=== PATIENT | female | born 1985 | race Caucasian/White ===

== ENCOUNTER 2020-04-06 21:59 | Emergency (ER) | payer OTHER ==
[~2020-04-06] VITALS: Ht 160 cm; Wt 97.7 kg
[~2020-04-06 21:59] MED LIST: CYCL10TA2 PO; LORA10TA68 PO; NAPR250T6 PO; RANI-369 PO
[2020-04-06 22:15] VITALS: BP 117/69
[2020-04-06] MEDS ORDERED: LIDOCAINE 1% PF 2 ML VIAL. ONE ×3 (22:33→23:00)
--- NOTE | 2020-04-06 23:45 | PHYS DOC ---
Past Medical History Past Medical History: Anxiety, Asthma, Other Additional Past Medical Histor: SEASONAL ALLERGIES Past Surgical History: Cholecystectomy, Tonsillectomy Additional Past Surgical Histo: RIGHT ANKLE Smoking Status: Current Every Day Smoker Additional Information: 09/21 PPD Alcohol Use: None Drug Use: None General Adult EDM: Chief Complaint: SORE THROAT HPI: HPI: Patient is a 35 year old female presenting with sore throat onset 2 days ago no fever lymph nodes feel swollen feels similar when she has had strep throat in the past which she used to get a lot when she was younger no fever no cough Heart Score: Risk Factors: Risk Factors: DM, Current or recent (<one month) smoker, HTN, HLP, family hist ory of CAD, obesity. Risk Scores: Score 0 - 3: 2.5% MACE over next 6 weeks - Discharge Home Score 4 - 6: 20.3% MACE over next 6 weeks - Admit for Clinical Observation Score 7 - 10: 72.7% MACE over next 6 weeks - Early Invasive Strategies Current Medications: Current Medications Medications (Trade) Dose Ordered Sig/Ashish Start Time Stop Time Status Last Admin Dose Admin Dexamethasone Sodium Phosphate (Decadron) 6 mg 1X ONCE 04/06/20 23:45 04/06/20 23:46 UNV Lidocaine HCl (Xylocaine-Mpf 1% 2ml Vial) 2 ml STK-MED ONCE 04/06/20 22:34 04/06/20 22:35 DC Penicillin G Benzathine (Bicillin L-A) 1,200,000 unit 1X ONCE 04/06/20 23:45 04/06/20 23:46 UNV Allergies: Allergies: Allergies Coded Allergies Type Severity Reaction Last Updated Verified No Known Drug Allergies 03/20/14 No Physical Exam: PE: Constitutional: Well developed, well nourished, no acute distress, non-toxic appearance. [] HENT: Normocephalic, atraumatic, bilateral external ears normal, oropharynx moist oral exudates are noted Eyes: PERRLA, EOMI, conjunctiva normal, no discharge. [] Neck: Lymphadenopathy noted anterior cervical tender [] Pulmonary: Normal respiratory effort no increased work of breathing no obvious chest wall trauma Abdomen: Bowel sounds normal, soft, no tenderness, no masses, no pulsatile masses. [] Skin: Warm, dry, no erythema, no rash. [] Extremities: No tenderness, no cyanosis, no clubbing, ROM intact, no edema. [] Neurologic: Alert and oriented X 3, normal motor function, normal sensory function, no focal deficits noted. [] Psychologic: Affect normal, judgement normal, mood normal. [] Current Patient Data: Vital Signs: Vital Signs Date Time Temp Pulse Resp B/P (MAP) Pulse Ox O2 Delivery O2 Flow Rate FiO2 04/06/20 22:15 98.2 112 18 117/69 (85) 96 Room Air 98.2 EKG: EKG: [] Radiology/Procedures: Radiology/Procedures: [] Course & Med Decision Making: Course & Med Decision Making Pertinent Labs and Imaging studies reviewed. (See chart for details) [] By Daniele gave treatment benzathine penicillin IM x1 per patient's request as well as a dose of Decadron in the emergency room return precautions discussed no evidence of peritonsillar abscess Simba Disclaimer: Simba Disclaimer: This electronic medical record was generated, in whole or in part, using a voice recognition dictation system. Departure Departure Impression: Primary Impression: Pharyngitis Disposition: 01 HOME, SELF-CARE Condition: STABLE Patient Instructions: Sore Throat, [id number] Justicifation of Admission Dx: Justifications for Admission: Justification of Admission Dx: N/A ANNI ANTON MD Apr 06, 2020 23:44
[2020-04-07] MEDS ORDERED: DEXAMETHASONE SOD PHOS 4 MG/ML VIAL PO ONE
[2020-04-07] MEDS ORDERED: PENICILLIN G BENZATHINE LA 1,200,000 UNIT/2 ML DISP.SYRIN. IM ONE
== END 2020-04-07 00:35 | disposition home or self-care (01) ==
LOC: ER 21:59
DX: J02.9 Acute pharyngitis, unspecified (principal); J45.909 Unspecified asthma, uncomplicated; F17.200 Nicotine dependence, unspecified, uncomplicated
CPT/HCPCS: 87070; 87880; 96372; 99283; J0561; J1100; J3490

== ENCOUNTER 2020-06-02 16:15 | Emergency (ER) | payer OTHER ==
[~2020-06-02] VITALS: Ht 175.3 cm; Wt 95.2 kg
[2020-06-02 17:02] VITALS: BP 141/91
--- NOTE | 2020-06-02 17:43 | RAD ---
Exam: Left wrist 3 views. Left hand 3 views INDICATION: Pain TECHNIQUE: Frontal, lateral and oblique views of the left wrist and left hand Comparisons: None FINDINGS: Left wrist: Mild surrounding soft tissue swelling around the left wrist. Bone mineralization is normal. No acute or healed fractures. Joint spaces are well-maintained. Left hand: There is a mildly displaced obliquely or acute fracture to the distal diaphysis of the fifth metacarpal. Bone mineralization is normal. No other fractures seen. Joint spaces are well-maintained. IMPRESSION: 1. Mildly displaced obliquely oriented fracture at the distal diaphysis of the fifth metacarpal. 2. No acute osseous abnormality of the left wrist. Electronically signed by: Selin Hart MD (06/02/2020 5:40 PM) [id number]
[2020-06-02] MEDS ORDERED: HYDR-3164 PO (17:52)
--- NOTE | 2020-06-02 17:53 | PHYS DOC ---
Past Medical History Past Medical History: Anxiety, Asthma, Other Additional Past Medical Histor: SEASONAL ALLERGIES Past Surgical History: Cholecystectomy, Tonsillectomy Additional Past Surgical Histo: RIGHT ANKLE Smoking Status: Current Every Day Smoker Alcohol Use: Rarely Drug Use: None General Adult EDM: Chief Complaint: WRIST PAIN HPI: HPI: Patient is a 35 year old female who presents to the ED today with 3 out of 10 left hand pain and left wrist pain. Patient reports left wrist pain began a week ago after she punched a wall. She states yesterday she fell onto her left hand. Patient says the pain is worse on touching the wrist and the hand. Denies any loss of consciousness when she fell. Review of Systems: Review of Systems: Constitutional: Denies fever or chills. [] Musculoskeletal: Reports left hand and left wrist pain Integument: Denies rash. [] Neurologic: Denies headache, focal weakness or sensory changes. [] Psychiatric: Denies depression or anxiety. [] Heart Score: Risk Factors: Risk Factors: DM, Current or recent (<one month) smoker, HTN, HLP, family history of CAD, obesity. Risk Scores: Score 0 - 3: 2.5% MACE over next 6 weeks - Discharge Home Score 4 - 6: 20.3% MACE over next 6 weeks - Admit for Clinical Observation Score 7 - 10: 72.7% MACE over next 6 weeks - Early Invasive Strategies Allergies: Allergies: Allergies Coded Allergies Type Severity Reaction Last Updated Verified No Known Drug Allergies 03/20/14 No Physical Exam: PE: Constitutional: Well developed, well nourished, no acute distress, non-toxic appearance. [] Skin: Warm, dry, no erythema, no rash. [] Back: No tenderness, no CVA tenderness. [] Extremities: Left dorsal hand with mild soft tissue swelling, tenderness on the left knuckles as well as left dorsal wrist. No scaphoid tenderness to the wrist. Full range of motion to the left hand and wrist. +2 left radial pulse. Adequate radial, medial, ulnar sensation to the left hand. Cap refill less than 2 seconds to left fingers. Neurologic: Alert and oriented X 3, normal motor function, normal sensory function, no focal deficits noted. [] Psychologic: Affect normal, judgement normal, mood normal. [] Current Patient Data: Vital Signs: Vital Signs Date Time Temp Pulse Resp B/P (MAP) Pulse Ox O2 Delivery O2 Flow Rate FiO2 06/02/20 17:02 98.1 77 14 141/91 (108) 100 Room Air 98.1 EKG: EKG: [] Radiology/Procedures: Radiology/Procedures: []PROCEDURE: HAND LEFT 3V Exam: Left wrist 3 views. Left hand 3 views INDICATION: Pain TECHNIQUE: Frontal, lateral and oblique views of the left wrist and left hand Comparisons: None FINDINGS: Left wrist: Mild surrounding soft tissue swelling around the left wrist. Bone mineralization is normal. No acute or healed fractures. Joint spaces are well-maintained. Left hand: There is a mildly displaced obliquely or acute fracture to the distal diaphysis of the fifth metacarpal. Bone mineralization is normal. No other fractures seen. Joint spaces are well-maintained. IMPRESSION: 1. Mildly displaced obliquely oriented fracture at the distal diaphysis of the fifth metacarpal. 2. No acute osseous abnormality of the left wrist. Electronically signed by: Eligio Salazar MD (06/02/2020 5:40 PM) [id number] DICTATED and SIGNED BY: ELIGIO SALAZAR MD DATE: 06/02/201739 Course & Med Decision Making: Course & Med Decision Making Pertinent Labs and Imaging studies reviewed. (See chart for details) This is a 35-year-old female patient presenting to the ED today with left hand and left wrist pain that began after a couple injuries. See HPI for details. Left hand x-rays interpreted by radiologist were noted for mildly displaced obliquely oriented fracture at the distal diaphysis of the fifth metacarpal. Left wrist x-rays are negative for any acute findings Patient was placed in a ulnar gutter by the ED RN, neurovascular exam done by me is intact. Ice elevation encouraged. Follow-up with orthopedic doctor in the course of this week. Dragon Disclaimer: Dragon Disclaimer: This electronic medical record was generated, in whole or in part, using a voice recognition dictation system. Departure Departure Impression: Primary Impression: Fracture of fifth metacarpal bone of left hand Qualified Codes: S62.397A - Other fracture of fifth metacarpal bone, left hand, initial encounter for closed fracture Additional Impression: Fall Qualified Codes: W19.XXXA - Unspecified fall, initial encounter Disposition: 01 HOME, SELF-CARE Condition: STABLE Referrals: NO PCP (PCP) OSWALDO HUSTON II, MD Call his office and set up a follow up appointment Patient Instructions: Fall Prevention and Home Safety, Hand Fracture, Metacarpals Additional Instructions: You have left hand fracture. Please contact the provided orthopedic doctor tomorrow morning and set up a follow-up appointment. In the meantime try to ice and elevate the extremity. Take the prescribed medications as needed for pain. Scripts Hydrocodone/Apap 5-325 (NORCO 5-325 TABLET) 1 Each Tablet 1 TAB PO Q6HRS, #12 TAB Prov: ANTHONY GARCIA APRN 06/02/20 Justicifation of Admission Dx: Justifications for Admission: Justification of Admission Dx: N/A ANTHONY GARCIA APRN Jun 02, 2020 17:53
[2020-06-02] MEDS ORDERED: NAPROXEN 500 MG TABLET PO STA (17:57)
[2020-06-02] MEDS ORDERED: HYDROcodone/APAP 5/325MG 1 TAB TABLET PO ONE (18:00)
== END 2020-06-02 18:24 | disposition home or self-care (01) ==
LOC: ER 16:15
DX: S62.397A Other fracture of fifth metacarpal bone, left hand, initial encounter for closed fracture (principal); M79.642 Pain in left hand; R60.0 Localized edema; F41.9 Anxiety disorder, unspecified; J45.909 Unspecified asthma, uncomplicated; F17.200 Nicotine dependence, unspecified, uncomplicated; Z90.89 Acquired absence of other organs; Z90.49 Acquired absence of other specified parts of digestive tract; Z98.890 Other specified postprocedural states; W18.39XA Other fall on same level, initial encounter; Y93.89 Activity, other specified; Y92.89 Other specified places as the place of occurrence of the external cause; Y99.8 Other external cause status
CPT/HCPCS: 29125; 73110; 73130; 99284